=== PATIENT | female | born 1970 | race Caucasian/White ===

== ENCOUNTER → 2019-07-01 | Outpatient (CLI) | payer BC ==
[~2019-07-01] MED LIST: ACHD5005 PO; CRS350T PO; TRIA1CAP PO; ZLP10T PO
--- NOTE | 2019-07-01 13:35 | Diagnostic Imaging Report ---
INDICATION: Routine screening. COMPARISON: 03/24/2018 and 06/26/2017. TECHNIQUE: 2D and 3D bilateral screening mammography was performed with CAD. FINDINGS: Both breasts are heterogeneously dense, limiting the sensitivity of mammography. The parenchymal pattern is stable. No mass or malignant appearing microcalcifications are seen. The axillae are unremarkable. IMPRESSION: No mammographic features suspicious for malignancy are identified. ACR BI-RADS Category 2: Benign findings. Result letter will be mailed to the patient. Note: At least 10% of breast cancer is not imaged by mammography. Dictated by: Dictated on workstation # [id number]
== END ==
LOC: RAD 11:25
PROVIDERS: ATTEND Nurse Practitioner Family
DX: Z12.31 Encounter for screening mammogram for malignant neoplasm of breast (principal)
CPT/HCPCS: 77067

== ENCOUNTER 2019-07-09 11:20 | Outpatient (RCR) | payer BC ==
[2019-04-15 11:10] VITALS: BP 127/79
--- NOTE | 2019-04-15 12:49 | Diagnostic Imaging Report ---
Patient History: post picc line placement. Technique: Single frontal view of the chest Comparison: 07/24/2013 FINDINGS: The lung volumes are normal. No focal consolidation is seen. No large pleural effusion or pneumothorax is seen. The cardiomediastinal silhouette is normal in size and contour. No acute osseous abnormality is seen. The tip of the left PICC line projects over the cavoatrial junction. IMPRESSION: The tip of the left PICC line projects over the cavoatrial junction. Dictated by: Dictated on workstation # [id number]
[2019-04-23 12:58] VITALS: BP 122/73
[2019-04-30 12:40] VITALS: BP 118/59
[2019-05-07 17:03] VITALS: BP 126/83
[2019-05-15 13:50] VITALS: BP 120/73
[2019-05-21 12:25] VITALS: BP 130/74
[2019-05-28 14:20] VITALS: BP 125/70
[2019-06-03 12:42] VITALS: BP 120/69
[2019-06-10 11:40] VITALS: BP 0/0
[2019-06-26 13:25] VITALS: BP 0/0
[2019-07-01 14:40] VITALS: BP 117/74
[~2019-07-09] VITALS: Ht 180 cm; Wt 84.0 kg
[~2019-07-09 11:20] MED LIST changes: +RT-ALBUTEROL SULF 2.5 MG/3 ML PRE-MIX VIAL ONE
[2019-07-09 11:46] VITALS: BP 106/69
== END 2019-07-14 | disposition home or self-care (01) ==
LOC: SDC 11:20
PROVIDERS: ATTEND Nurse Practitioner Family
DX: Z45.2 Encounter for adjustment and management of vascular access device (principal)
CPT/HCPCS: 36569; 71045; 76937; 99211

== ENCOUNTER 2019-10-12 12:36 | Outpatient (RCR) | payer BC ==
[2019-07-16 16:34] VITALS: BP 130/87
[2019-07-21 12:15] VITALS: BP 92/79
[2019-07-28 13:20] VITALS: BP 117/64
[2019-08-06 13:28] VITALS: BP 113/75
[2019-08-14 10:31] VITALS: BP 119/78
[2019-08-28 15:35] VITALS: BP 112/72
[2019-09-09 15:48] VITALS: BP 122/80
[2019-09-17 12:25] VITALS: BP 104/59
[~2019-10-12] VITALS: Ht 180 cm; Wt 84.0 kg
[~2019-10-12 12:36] MED LIST changes: -RT-ALBUTEROL SULF 2.5 MG/3 ML PRE-MIX VIAL ONE
[2019-10-12 12:55] VITALS: BP 119/65
== END 2019-10-14 | disposition home or self-care (01) ==
LOC: SDC 12:36
PROVIDERS: ATTEND Nurse Practitioner Family
DX: Z45.2 Encounter for adjustment and management of vascular access device (principal)
CPT/HCPCS: 99211

== ENCOUNTER 2020-02-04 09:52 | Outpatient (RCR) | payer BC ==
[2019-11-11 10:15] VITALS: BP 126/67
--- NOTE | 2019-11-11 11:00 | Diagnostic Imaging Report ---
INDICATION: PICC line placement. COMPARISON: April 15, 2019. TECHNIQUE: Two radiographs of the chest dated November 11, 2019. FINDINGS: Left-sided PICC line is in place with the distal tip overlying the mid aspect of the superior vena cava. No pneumothorax. The cardiac silhouette and pulmonary vasculature are within normal limits. The lungs are clear. No pleural effusion. No pneumothorax. No acute osseous abnormality. Surgical clips are present within the right upper quadrant of the abdomen. IMPRESSION: Left-sided PICC line is in place with the distal tip within the mid superior vena cava without pneumothorax or additional acute cardiopulmonary abnormality. Dictated by: Dictated on workstation # [id number]
[2019-12-15 11:12] VITALS: BP 110/67
[2019-12-30 12:55] VITALS: BP 104/61
[2020-01-07 15:00] VITALS: BP 113/73
[2020-01-27 15:45] VITALS: BP 115/65
[~2020-02-04] VITALS: Ht 180 cm; Wt 84.0 kg
[2020-02-04 10:15] VITALS: BP 133/73
== END 2020-02-09 | disposition home or self-care (01) ==
LOC: SDC 09:52
PROVIDERS: ATTEND Nurse Practitioner Family
DX: Z45.2 Encounter for adjustment and management of vascular access device (principal)
CPT/HCPCS: 71045; G0463; 99211

== ENCOUNTER 2020-02-29 13:50 | Outpatient (RCR) | payer BC ==
[2020-02-16 11:50] VITALS: BP 116/63
[2020-02-24 14:40] VITALS: BP 113/69
[~2020-02-29] VITALS: Ht 177.8 cm; Wt 84.0 kg
[2020-02-29 14:05] VITALS: BP 111/62
== END 2020-02-29 14:10 | disposition home or self-care (01) ==
LOC: SDC 13:50
PROVIDERS: ATTEND Nurse Practitioner Family
DX: Z45.2 Encounter for adjustment and management of vascular access device (principal)
CPT/HCPCS: 99211

== ENCOUNTER → 2020-07-05 | Outpatient (CLI) | payer BC ==
--- NOTE | 2020-07-05 13:54 | Diagnostic Imaging Report ---
INDICATION: Routine screening. COMPARISON: 07/01/2019 and 03/24/2018. TECHNIQUE: 2D and 3D bilateral screening mammography was performed with CAD. FINDINGS: Both breasts remain heterogeneously dense, limiting the sensitivity of mammography. There is a cluster of microcalcifications in the retroareolar and slightly outer aspect of the right breast which appear slightly more numerous when compared with prior exams. Additional views are recommended. No mass is identified. The axillae are unremarkable. IMPRESSION: Right breast calcifications. Additional views are recommended for further evaluation. ACR BI-RADS Category 0: Incomplete. (Needs additional imaging evaluation). Result letter will be mailed to the patient. Note: At least 10% of breast cancer is not imaged by mammography. Dictated by: Dictated on workstation # [id number]
== END ==
LOC: RAD 11:16
PROVIDERS: ATTEND Nurse Practitioner Family
DX: Z12.31 Encounter for screening mammogram for malignant neoplasm of breast (principal)
CPT/HCPCS: 77063; 77067

== ENCOUNTER → 2020-07-15 | Outpatient (CLI) | payer BC ==
--- NOTE | 2020-07-15 14:07 | Diagnostic Imaging Report ---
INDICATION: Right breast calcifications. Patient presents for further evaluation. Correlation is made with prior mammogram from 07/05/2020. Unilateral right 2-D and 3-D diagnostic mammography was performed. Right breast is heterogeneously dense, limiting the sensitivity of mammography. There is a cluster of microcalcifications in the retroareolar outer right breast. These are somewhat ill-defined on CC view and some appear to be layering on the MLO view suggestive of milk of calcium. No associated soft tissue mass is identified. IMPRESSION: BI-RADS Category 3 Probable milk of calcium calcifications in the retroareolar slightly outer right breast. Even so, followup right mammogram in 6 months is recommended to show continued stability. ACR BI-RADS Category 3: Probably benign findings. Result letter will be mailed to the patient. Note: At least 10% of breast cancer is not imaged by mammography. Dictated by: Dictated on workstation # [id number]
== END ==
LOC: RAD 12:30
PROVIDERS: ATTEND Nurse Practitioner Family
DX: R92.1 Mammographic calcification found on diagnostic imaging of breast (principal)
CPT/HCPCS: 77065; G0279

== ENCOUNTER → 2020-12-30 | Outpatient (CLI) | payer BC ==
--- NOTE | 2020-12-30 13:46 | Diagnostic Imaging Report ---
INDICATION: Right breast calcifications. Patient presents for six-month followup. Correlation is made prior mammograms 07/15/2020, 07/05/2020 as well as 07/01/2019. Unilateral right 2-D and 3-D diagnostic mammography was performed. Cluster microcalcifications in the retroareolar and outer aspect of the right breast again noted. These appear indeterminate on today's study and tissue sampling is recommended. No other suspicious abnormality is identified. IMPRESSION: BI-RADS Category 4 Cluster microcalcifications in the retroareolar outer right breast. These are indeterminate. Tissue sampling is recommended. These would be amenable to stereotactic biopsy. ACR BI-RADS Category 4: Suspicious abnormality. Result letter will be mailed to the patient. Note: At least 10% of breast cancer is not imaged by mammography. Dictated by: Dictated on workstation # [id number]
--- NOTE | 2020-12-30 16:16 | Diagnostic Imaging Report ---
INDICATION: Right breast lump. EXAMINATION: Sonographic interrogation of area of lump in the 4-5 o'clock location of the right breast was performed. FINDINGS: No sonographic abnormality is identified. No solid or cystic mass is detected. IMPRESSION: 1. No significant abnormality is identified. 2. Right breast calcifications noted on same-day diagnostic mammogram. Patient will be scheduled for stereotactic biopsy. ACR BI-RADS Category 4: Suspicious abnormality. Result letter will be mailed to the patient. Note: At least 10% of breast cancer is not imaged by mammography. Dictated on workstation # [id number]
== END ==
LOC: RAD 13:15
PROVIDERS: ATTEND Nurse Practitioner Family
DX: N63.10 Unspecified lump in the right breast, unspecified quadrant (principal); R92.1 Mammographic calcification found on diagnostic imaging of breast; R92.0 Mammographic microcalcification found on diagnostic imaging of breast
CPT/HCPCS: 76642; 77065; G0279

== ENCOUNTER → 2021-01-04 | Outpatient (CLI) | payer BC ==
[~2021-01-04] VITALS: Ht 180.3 cm; Wt 82.7 kg
[~2021-01-04] MED LIST changes: +LIDOCAINE 1% INJ 20 ML 20 ML VIAL INJ ONE
--- NOTE | 2021-01-04 16:59 | Diagnostic Imaging Report ---
INDICATION: Right breast calcifications. Patient presents for stereotactic biopsy. PROCEDURE: Patient was brought to the serotactic suite and placed in the chair in the sitting upright position. The right breast was positioned lateral medial. The cluster of microcalcifications in the retroareolar outer right breast were stereotactically targeted. The lateral right breast was prepped and draped in the usual sterile fashion. A small amount of 1% lidocaine was utilized for local anesthesia. An 8-gauge needle was advanced and placed with its tip per stereotactic coordinates. A total of four core biopsies were obtained with the vacuum-assisted device. All images were viewed on dedicated workstation. The specimen radiograph demonstrates numerous microcalcifications within specimens labeled 2, 3 and 4, most numerous in the specimen labeled #3. A marker clip was deployed. The needle was removed and hemostasis was obtained using manual compression. Patient tolerated the procedure well. Post procedure mammogram demonstrates a marker clip in the retroareolar and outer right breast. There has been significant reduction in microcalcifications in the retroareolar outer right breast, status post biopsy. IMPRESSION: Successful stereotactic biopsy of right breast calcifications utilizing the vacuum assisted device. Pathology results are currently pending. Dictated on workstation # [id number]
== END ==
LOC: RAD 14:45
PROVIDERS: ATTEND Nurse Practitioner Family
DX: N63.10 Unspecified lump in the right breast, unspecified quadrant (principal)
CPT/HCPCS: 19081; A4648

== ENCOUNTER → 2022-05-22 | Outpatient (CLI) | payer BC ==
[~2022-05-22] MED LIST changes: -LIDOCAINE 1% INJ 20 ML 20 ML VIAL INJ ONE
--- NOTE | 2022-05-22 15:03 | Diagnostic Imaging Report ---
Indication: Routine screening. Comparison is made with prior mammograms 07/05/2020 and 07/01/2019. 2-D and 3-D bilateral screening mammography was performed with CAD. Both breasts are heterogeneously dense, limiting the sensitivity of mammography. A biopsy marker clip in the outer retroareolar right breast is again noted. No new mass or malignant-appearing microcalcifications are seen. Axillae are unremarkable. IMPRESSION: BI-RADS Category 2 No mammographic features suspicious for malignancy are identified. ACR BI-RADS Category 2: Benign findings. Result letter will be mailed to the patient. Note: At least 10% of breast cancer is not imaged by mammography. Dictated by: Dictated on workstation # [id number]
== END ==
LOC: RAD 10:54
PROVIDERS: ATTEND Nurse Practitioner Family
DX: Z12.31 Encounter for screening mammogram for malignant neoplasm of breast (principal)
CPT/HCPCS: 77063; 77067

== ENCOUNTER → 2023-06-24 | Outpatient (CLI) | payer BC ==
--- NOTE | 2023-06-24 12:54 | Diagnostic Imaging Report ---
INDICATION: Routine screening. COMPARISON: 05/22/2022. TECHNIQUE: 2D and 3D bilateral screening mammography was performed with CAD. FINDINGS: Both breasts are heterogeneously dense, limiting the sensitivity of mammography. A biopsy marker clip in the right breast is again noted. No mass or malignant-appearing microcalcifications are identified. The axillae are unremarkable. IMPRESSION: No mammographic features suspicious for malignancy are identified. ACR BI-RADS Category 2: Benign findings. Result letter will be mailed to the patient. Note: At least 10% of breast cancer is not imaged by mammography. Dictated by: Dictated on workstation # [id number]
== END ==
LOC: RAD 10:45
PROVIDERS: ATTEND Nurse Practitioner Family
DX: Z12.31 Encounter for screening mammogram for malignant neoplasm of breast (principal)
CPT/HCPCS: 77063; 77067